=== PATIENT | female | born 1980 | race Caucasian/White ===

== ENCOUNTER → 2018-12-20 | Outpatient (CLI) | payer OTHER | LOC: MRI 08:09 | DX: I63.9 Cerebral infarction, unspecified (principal); G81.91 Hemiplegia, unspecified affecting right dominant side; G93.89 Other specified disorders of brain ==

== ENCOUNTER → 2018-12-24 | Outpatient (CLI) | payer OTHER | LOC: CAT 15:24 | DX: I63.9 Cerebral infarction, unspecified (principal) ==